=== PATIENT | male | born 1975 | race Caucasian/White ===

== ENCOUNTER 2023-09-26 17:59 | Emergency (ER) | payer OTHER ==
[2023-09-26 18:16] VITALS: BP 134/87; PULSE 87; RESP 18; TEMP 97.9; BMI 33.4
== END 2023-09-26 21:05 | disposition home or self-care (01) ==
LOC: FER 17:59
DX: S99.912A Unspecified injury of left ankle, initial encounter (principal); W10.9XXA Fall (on) (from) unspecified stairs and steps, initial encounter; X50.0XXA Overexertion from strenuous movement or load, initial encounter; Y93.01 Activity, walking, marching and hiking; Y99.0 Civilian activity done for income or pay
CPT/HCPCS: 70450-TC; 73130-TC-RT-FY; 73610-TC-LT-FY; 73630-TC-LT; 99284-25